=== PATIENT | male | born 1970 | race Hispanic/Latino ===

== ENCOUNTER 2021-07-02 01:32 | Emergency (ER) | payer OTHER ==
[~2021-07-02] VITALS: Ht 177.8 cm; Wt 93.4 kg
[2021-07-02] MEDS ORDERED: HYDROCODONE/APAP 5MG-325MG TAB PO ONE (02:00)
[2021-07-02] MEDS ORDERED: HYDROCODONE/APAP 5MG-325MG TAB ONE (02:14)
[2021-07-02] MEDS ORDERED: AUGMENTIN 500-1 EACH PO (03:49)
[2021-07-02] MEDS ORDERED: KETOROLAC TROME10 MG PO (03:49)
[2021-07-02] MEDS ORDERED: CYCLOBENZAPRINE5 MG PO (03:49)
[2021-07-02 03:50] VITALS: BP 148/80
== END 2021-07-02 03:50 | disposition home or self-care (01) ==
LOC: FSED 03:46
DX: S00.83XA Contusion of other part of head, initial encounter (principal); S13.4XXA Sprain of ligaments of cervical spine, initial encounter; S20.219A Contusion of unspecified front wall of thorax, initial encounter; S30.1XXA Contusion of abdominal wall, initial encounter; V28.4XXA Motorcycle driver injured in noncollision transport accident in traffic accident, initial encounter; Y92.488 Other paved roadways as the place of occurrence of the external cause
CPT/HCPCS: 70450; 71250; 72125; 74176; 99283